=== PATIENT | female | born 1945 | race Caucasian/White ===

== ENCOUNTER 2016-09-07 13:10 | Emergency (ER) | payer MEDICARE, BC | END 2016-09-07 13:38 | disposition home or self-care (01) | LOC: SED 13:10 | DX: S20.462A Insect bite (nonvenomous) of left back wall of thorax, initial encounter (principal); Z88.0 Allergy status to penicillin; Z88.2 Allergy status to sulfonamides; Z88.1 Allergy status to other antibiotic agents; Z90.710 Acquired absence of both cervix and uterus; W57.XXXA Bitten or stung by nonvenomous insect and other nonvenomous arthropods, initial encounter | CPT/HCPCS: 99282; 99283 ==